=== PATIENT | male | born 1960 | race Caucasian/White ===

== ENCOUNTER 2018-12-04 17:33 | Inpatient (IN) | payer MEDICAID, OTHER ==
[~2018-12-04] VITALS: Ht 177.8 cm; Wt 127.9 kg
[2018-12-04] MEDS ORDERED: ACETAMINOPHEN 500 MG TAB PO ONE (18:45)
[2018-12-04 20:31] LABS: Lactic Acid w/Reflex 2.9 mmol/L (0.4-2.0)
[2018-12-04 21:11] LABS: Urine Bacteria NONE SEEN /hpf (None Seen); Urine Blood 3+ /uL (Negative); Urine Mucus FEW (None Seen); Urine Specific Gravity 1.028 (1.001-1.035); Urine WBC 73 /hpf (0 - 3); Urine WBC Clumps PRESENT /hpf (None Seen)
[2018-12-04 21:21] LABS: Basophils # (auto) 0 uL; Basophils % (auto) 0.2 % (0.0-2.0); Eosinophils # (auto) 0 uL; Eosinophils % (auto) 0.1 % (0.0-7.0); Hematocrit 46.8 % (41.0-53.0); Hemoglobin 15.9 g/dL (13.5-17.5); Lymphocytes # (auto) 0.9 uL; Mean Corpuscular Volume 100.1 fL (80.0-100.0); Monocytes # (auto) 2.3 uL; Monocytes % (auto) 10.1 % (0.0-12.0); Neutrophils # (auto) 19.7 uL; Neutrophils % (auto) 85.6 % (37.0-80.0); Nucleated Red Blood Cells % 0.1 %; Platelet Count (auto) 146 10^3/uL (140-450); Red Blood Cells 4.68 10^6/uL (4.5-5.90); Red Cell Distribution Width 13.5 % (11.8-14.3); White Blood Cell 23.1 10^3/uL (4.4-10.8)
[2018-12-04] MEDS ORDERED: HYDROmorphone HCL 2 MG/ML VL IV ONE (21:30)
[2018-12-04] MEDS ORDERED: ONDANSETRON HCL 4 MG/2 ML VIAL IV ONE (21:30)
[2018-12-04 21:47] LABS: Albumin 3.3 g/dL (3.4-5.0); Calcium 9.1 mg/dL (8.5-10.1); Potassium 3.5 mmol/L (3.5-5.1)
[2018-12-04 21:50] LABS: Bilirubin, Total 1.3 mg/dL (0.2-1.0); Total Protein 7.8 g/dL (6.4-8.2)
[2018-12-04] MEDS ORDERED: LEVOFLOXACIN 500MG 100 ML IV ONE (22:30)
[2018-12-04] MEDS ORDERED: ONDANSETRON HCL 4 MG/2 ML VIAL IV PRN (22:30)
[2018-12-04] MEDS ORDERED: SODIUM CHLORIDE 0.9% 1,000 ML IV ONE (22:30)
[2018-12-04] MEDS ORDERED: NITROGLYCERIN 0.4 MG SL TAB SL PRN (22:30)
[2018-12-04] MEDS ORDERED: MORPHINE SULF INJ 2 MG/ML SYRINGE 1ML IV PRN (22:30)
[2018-12-04] MEDS ORDERED: TEMAZEPAM 15 MG CAP PO PRN (22:30)
[2018-12-04] MEDS ORDERED: LACTULOSE 20Gm/30ML SOLN PO ONE (23:15)
--- NOTE | 2018-12-04 23:58 | NUR ---
RECEIVED PATIENT FROM ED VIA STRETCHER, AWAKE, ALERT, ORIENTED X4. NO S/S OF DISTRESS, DENIES ANY PAIN. WITH IV ON THE LEFT AC GAUGE 20 WITH ONGOING 1 LITER OF NS BOLUS. WITH NORIEGA CATH F16 CONNECTED TO URINE BAG DRAINING TO DARK KOBY URINE. SKIN IS INTACT. ORIENTED ON PLAN OF CARE. BED IS LOCKED AND IN LOWEST LEVEL, SIDE RAILS UP X2, CALL LIGHT WITHIN REACH. WILL CONTINUE TO MONITOR
[2018-12-05] VITALS (8 sets, daily range): BP systolic 103–126; BP diastolic 57–90
[2018-12-05] MEDS: SODIUM CHLORIDE 0.9% 1,000 ML IV SCH ×2 (02:02→11:50)
[2018-12-05 02:07] LABS: Urine Bacteria FEW /hpf (None Seen); Urine Blood Negative /uL (Negative); Urine Hyaline Cast FEW /lpf (0 - 2); Urine Mucus FEW (None Seen); Urine Specific Gravity 1.023 (1.001-1.035); Urine WBC <1 /hpf (0 - 3)
[2018-12-05 07:00] LABS: Basophils # (auto) 0 uL; Eosinophils # (auto) 0.1 uL; Hemoglobin 15.3 g/dL (13.5-17.5); Neutrophils # (auto) 14.3 uL; Nucleated Red Blood Cells % 0.1 %
[2018-12-05 07:03] LABS: Basophils % (auto) 0.2 % (0.0-2.0); Eosinophils % (auto) 0.7 % (0.0-7.0); Hematocrit 45.1 % (41.0-53.0); Lymphocytes # (auto) 0.5 uL; Lymphocytes % (auto) 2.9 % (10.0-50.0); Mean Corpuscular Hemoglobin 34.4 pg (28.0-32.0); Mean Corpuscular Hgb Conc. 33.8 g/dL (32.0-36.0); Mean Corpuscular Volume 101.7 fL (80.0-100.0); Monocytes # (auto) 1.4 uL; Monocytes % (auto) 8.8 % (0.0-12.0); Neutrophils % (auto) 87.4 % (37.0-80.0); Platelet Count (auto) 129 10^3/uL (140-450); Red Blood Cells 4.44 10^6/uL (4.5-5.90); Red Cell Distribution Width 13.6 % (11.8-14.3); White Blood Cell 16.4 10^3/uL (4.4-10.8)
--- NOTE | 2018-12-05 07:41 | NUR ---
CARE ENDORSED TO AM SHIFT RN
--- NOTE | 2018-12-05 08:00 | NUR ---
RECEIVED PATIENT ALERT AND ORIENTED X4, NOT IN DISTRESS, CLEAR SOUNDS IN BILATERAL LUNG LOBES, RR=18 SAT=97%, DEEP BREATHING AND COUGHING ENCOURAGED, DEMONSTRATED AND TOLERATED WELL, DENIED SOB AND CHEST PAIN, HEART R=78, ABDOMEN SOFT WITH ACTIVE BS, LAST BM=12/03/18 REPORTED, TOLERATED 100% OF BREAKFAST TRAY REPORTED, NORIEGA CATH IN PLACE AND PATENT, DRAINING CLEAR YELLOW URINE WITH BLOOD CLOTS, SKIN INTACT WARM TO TOUCH, RADIAL AND PEDAL PULSES PALPABLE, CAP REFILL <3 SECONDS, RESTING ON BED, HEAD OF BED ELEVATED, BED ON LOW POSITION, RAILS UP X2, CALL LIGHT ON REACH, WILL CONTINUE MONITORING.
[2018-12-05] MEDS ORDERED: DOCUSATE SOD 100 MG CAP PO SCH (10:00)
[2018-12-05] MEDS: FAMOTIDINE 20 MG TAB PO SCH ×2 (10:46→21:08)
[2018-12-05] MEDS: ACETAMINOPHEN 325 MG TAB PO PRN ×2 (12:32→21:07)
--- NOTE | 2018-12-05 12:48 | NUR ---
DR. GARSIA WAS WAS CALLED AND LEFT A MASSAGE FOR POSITIVE BLOOD CULTURE RESULT REPORTED BY THE LAB, WAITING FOR CALL BACK.
[2018-12-05] MEDS: HYDROcodone-ACET 5/325MG TAB PO PRN (13:30)
--- NOTE | 2018-12-05 14:30 | NUR ---
DR. GARSIA WAS CALLED FOR FOLLOW UP, AND WAITING FOR CALL BACK, C/O PAIN L=01/01 NORCO PO PRN WAS GIVEN ORDERED, INFLATE NORIEGA CATH AND MONITOR PLACEMENT VERIFICATION, TOLERATED WELL, RESTING ON BED PAIN L=08/01 AT THIS MOMENT, WILL CONTINUE MONITORING.
[2018-12-05] MEDS ORDERED: LACTULOSE 20Gm/30ML SOLN PO ONE (15:15)
--- NOTE | 2018-12-05 18:00 | NUR ---
D/C NORIEGA CATH ORDERED, OUT OF BED TO BR AND BACK TO BED, TOLERATED WELL, NO BM NOTED TODAY, RESTING ON BED, NOT IN DISTRESS, WILL CONTINUE MONITORING.
--- NOTE | 2018-12-05 19:18 | NUR ---
OPENING NOTE Received report from day shift RN. Patient is A&O X's 4 with no s/s of distress noted. He reports no pain at this time. Patient has no IV. Educated patient I will insert one and on POC. Patient verbalized understanding. Bed is in lowest/locked position with side rails up X's 2 and call light is within reach of patient. Educated patient to use call light when in need of assistance and when needing to ambulate. Bed alarm is on for safety. Urinal is at bedside. Will continue to monitor for changes and round hourly/PRN.
--- NOTE | 2018-12-05 19:19 | NUR ---
REPORT WAS GIVEN TO THE ADMINISTRATION ASSISTANT RN.
--- NOTE | 2018-12-05 20:30 | NUR ---
IV Patient refused to have IV inserted at this time. He reports that it hurt when I first attempted to insert 22G IV to left hand and that is why he pulled his arm away right when the IV needle touched him. No trauma to site noted. Gauze applied to site. Contacted resource RN to try to attempt IV at later time. Will continue to monitor patient
--- NOTE | 2018-12-05 21:07 | NUR ---
TEMPERATURE Temp is at 103. Cooling measures initiated: Ice packs are under patient's back of neck and under arm. Blankets are removed from patient. Administered Tylenol as ordered. Patient reports feeling okay at this time. Will reassess temp
[2018-12-05] MEDS: SENNA 8.6 MG TAB PO SCH (21:09)
--- NOTE | 2018-12-05 22:29 | NUR ---
IV INSERTION IV access obtained, via clean sterile technique by inserting 20 gauge catheter at RIGHT AC after 1 attempt. IV secured properly. No trauma to site. Patient tolerated well.
[2018-12-05] MEDS: LEVOFLOXACIN 500MG 100 ML IV SCH (22:54)
--- NOTE | 2018-12-05 22:54 | NUR ---
TEMP REASSESSMENT 101.0. Patient still reports feeling "okay." Cooling measures still being continued. Patient has no blankets on. Ice pack is under patient's arm. He took one off because he said he got way too cold with it. Will continue to monitor.
[2018-12-06] MEDS: SODIUM CHLORIDE 0.9% 1,000 ML IV SCH ×2 (01:10→14:30)
[2018-12-06 05:52] VITALS: BP 136/68
--- NOTE | 2018-12-06 07:45 | NUR ---
RECEIVED PATIENT ALERT AND ORIENTED X4, NOT IN DISTRESS, CLEAR SOUNDS IN BILATERAL LUNG LOBES, RR=18 SAT=96%, DEEP BREATHING AND COUGHING ENCOURAGED, DEMONSTRATED AND TOLERATED WELL, DENIED SOB AND CHEST PAIN, HEART R=78, ABDOMEN SOFT AND ROUND WITH HYPOACTIVE ACTIVE BS, NO BM THIS MORNING REPORTED, VOIDING ON URINAL CLOUDY YELLOW URINE NOTED, SKIN INTACT WARM TO TOUCH, RADIAL AND PEDAL PULSES PALPABLE, CAP REFILL <3 SECONDS, ENCOURAGED TO AMBULATE AND REFUSED, RESTING ON BED, HEAD OF BED ELEVATED, BED ON LOW POSITION, RAILS UP X2, CALL LIGHT ON REACH, WILL CONTINUE MONITORING.
[2018-12-06 08:11] LABS: Basophils # (auto) 0 uL; Basophils % (auto) 0.3 % (0.0-2.0); Eosinophils # (auto) 0 uL; Lymphocytes # (auto) 0.3 uL
[2018-12-06 08:14] LABS: Hematocrit 43.7 % (41.0-53.0); Mean Corpuscular Hemoglobin 34.3 pg (28.0-32.0); Mean Corpuscular Hgb Conc. 34.4 g/dL (32.0-36.0); Mean Corpuscular Volume 99.6 fL (80.0-100.0); Monocytes # (auto) 0.8 uL; Monocytes % (auto) 10.3 % (0.0-12.0); Neutrophils % (auto) 85.4 % (37.0-80.0); Platelet Count (auto) 102 10^3/uL (140-450); Red Blood Cells 4.38 10^6/uL (4.5-5.90); Red Cell Distribution Width 13.8 % (11.8-14.3); White Blood Cell 8.2 10^3/uL (4.4-10.8)
[2018-12-06 08:24] LABS: BUN/Creatinine Ratio 19.8; Calcium 8.2 mg/dL (8.5-10.1); Potassium 3.4 mmol/L (3.5-5.1)
--- NOTE | 2018-12-06 08:54 | NUR ---
RESTING ON BED, NOT IN DISTRESS, TOLERATED 100% OF DIET TRAY, WILL CONTINUE MONITORING.
[2018-12-06 09:00] VITALS: BP 116/56
[2018-12-06] MEDS: FAMOTIDINE 20 MG TAB PO SCH ×2 (10:56→22:25)
[2018-12-06 13:00] VITALS: BP 133/82
--- NOTE | 2018-12-06 15:00 | NUR ---
POTASSIUM L=3.4, WAS NOTIFIED AND AWARE.
[2018-12-06] MEDS: HYDROcodone-ACET 5/325MG TAB PO PRN (15:09)
[2018-12-06 16:20] VITALS: BP 133/82
[2018-12-06] MEDS ORDERED: FLEET MINERAL OIL ENEMA 133 ML PR ONE (16:30)
[2018-12-06] MEDS ORDERED: BISACODYL 10 MG RECT SUPP PR ONE (16:30)
--- NOTE | 2018-12-06 16:30 | NUR ---
OUT OF THE BED WITH PT, AMBULATED AROUND THE UNIT, TOLERATED WELL, SMALL HARD BRON BM NOTED REPORTED, COMPLAINING OF CONSTIPATION, DR. AMAYA NOTIFIED, WILL CONTINUE MONITORING.
[2018-12-06 17:00] VITALS: BP 124/83
--- NOTE | 2018-12-06 18:30 | NUR ---
DULCOLAX SUPPOSITORY X1 WAS GIVEN ORDERED, LARGE BM X2 WAS NOTED REPORTED, C/O CONSTIPATION, PENDING ENEMA X1, WILL CONTINUE MONITORING.
--- NOTE | 2018-12-06 19:18 | NUR ---
REPORT WAS GIVEN TO THE HULL SORTER RN.
--- NOTE | 2018-12-06 19:22 | NUR ---
OPENING NOTE Received report from day shift RN. Patient is laying in bed with no s/s of distress noted. He is currently talking on the phone. Bed is in lowest/locked position with side rails up X's 2 and call light is within reach of patient. Will continue to monitor for changes and round hourly/PRN.
[2018-12-06 21:30] VITALS: BP 119/67
[2018-12-06] MEDS: SENNA 8.6 MG TAB PO SCH (22:25)
[2018-12-06] MEDS: LEVOFLOXACIN 500MG 100 ML IV SCH (22:38)
--- NOTE | 2018-12-06 22:38 | NUR ---
PATIENT REFUSED MED Patient refused Enema at this time. He states that he had a decent size BM after suppository was given. He was willing to take the laxative after education on the medication. Encouraged patient to ambulate.
[2018-12-06] MEDS: ACETAMINOPHEN 325 MG TAB PO PRN (23:04)
[2018-12-07] MEDS: SODIUM CHLORIDE 0.9% 1,000 ML IV SCH ×2 (03:50→17:04)
--- NOTE | 2018-12-07 05:00 | NUR ---
LINEN CHANGE Patient had an accident and urinated in bed. Complete linen change done at this time. Patient ambulated to bathroom to have bowel movement.
[2018-12-07 05:59] VITALS: BP 115/72
--- NOTE | 2018-12-07 07:12 | NUR ---
CLOSING NOTE REPORT WAS GIVEN TO DAY SHIFT RN
--- NOTE | 2018-12-07 07:50 | NUR ---
RECEIVED PATIENT ALERT AND ORIENTED X4, NOT IN DISTRESS, CLEAR SOUNDS IN BILATERAL LUNG LOBES, RR=18 SAT=97%, DEEP BREATHING AND COUGHING ENCOURAGED, DEMONSTRATED AND TOLERATED WELL, DENIED SOB AND CHEST PAIN, HEART R=82, ABDOMEN SOFT AND ROUND WITH ACTIVE BS, LARGE CONSISTENT BROWN BM NOTED THIS MORNING REPORTED, VOIDING ON URINAL CLEAR YELLOW URINE, SKIN INTACT WARM TO TOUCH, RADIAL AND PEDAL PULSES PALPABLE, CAP REFILL <3 SECONDS, ENCOURAGED TO AMBULATE, AMBULATED AROUND THE UNIT X3, TOLERATED WELL, RESTING ON BED, HEAD OF BED ELEVATED, BED ON LOW POSITION, RAILS UP X2, CALL LIGHT ON REACH, WILL CONTINUE MONITORING.
[2018-12-07 08:00] VITALS: BP 124/76
[2018-12-07] MEDS: HYDROcodone-ACET 5/325MG TAB PO PRN (10:33)
[2018-12-07] MEDS: FAMOTIDINE 20 MG TAB PO SCH (10:33)
[2018-12-07 12:00] VITALS: BP 113/64
--- NOTE | 2018-12-07 14:31 | NUR ---
DR. AMAYA WAS CALLED FOR POTASSIUM L=3.4 AND FOLLOW UP UPDATES, LEFT A MESSAGE AND WAITING FOR CALL BACK.
--- NOTE | 2018-12-07 15:17 | NUR ---
assessment Per consult dc planning. Patient has no post discharge needs at this time. Addendum: 12/11/18 at 1517 by Mitali Becerra Amended: Links added.
[2018-12-07 17:00] VITALS: BP 116/71
[2018-12-07 18:33] VITALS: BP 126/74
--- NOTE | 2018-12-07 20:06 | NUR ---
D/C INSTRUCTIONS AND PRESCRIPTION EDUCATION PROVIDED, VERBALIZED UNDERSTANDING, URGENT CARE INFORMATION FOR FOLLOW UP PROVIDED, D/C IV FROM LT.AC TOLERATED WELL, VS T=97.2 RR=18 SAT=97% P=76 WW=745/68, NOT IN DISTRESS, DENIED PAIN, WC PROVIDED, D/C HOME AMBULATING ACCOMPANIED BY SON, TOOK ALL BELONGINGS AND LEFT NOTHING BEHIND.
== END 2018-12-07 19:30 | disposition home or self-care (01) | DRG 463 ==
LOC: ER 17:43 → OVERFLOW 17:44 → WEST WING 23:25
PROVIDERS: ADMIT Nurse Practitioner; ATTEND Internal Medicine
DX: N10 Acute pyelonephritis (principal); R65.10 Systemic inflammatory response syndrome (SIRS) of non-infectious origin without acute organ dysfunction; R78.81 Bacteremia; E66.01 Morbid (severe) obesity due to excess calories; Z68.41 Body mass index [BMI] 40.0-44.9, adult; N40.0 Benign prostatic hyperplasia without lower urinary tract symptoms; K56.41 Fecal impaction; M54.9 Dorsalgia, unspecified; B96.20 Unspecified Escherichia coli [E. coli] as the cause of diseases classified elsewhere; Z87.442 Personal history of urinary calculi
CPT/HCPCS: 36415; 51702; 74176; 80048; 80053; 81001; 83605; 84439; 84443; 85025; 87040; 87077; 87086; 87088; 87186; 93005; 96361; 96374; 96375; G0378; J1956; J2405

== ENCOUNTER 2024-11-05 11:12 | Inpatient (IN) | payer MEDICAID ==
[~2024-11-05] VITALS: Ht 177.8 cm; Wt 128.6 kg
--- NOTE | 2024-11-05 11:29 | ED.PDOC ---
HPI Comments 63 y/o M, presents to the ED for CC of chest pain. Patient states, he has been experiencing substernal non-radiating chest pain with associated palpitations and shortness of breath x1week. Patient reports, pain to be constant and worsening in the evenings. Patient denies dizziness, extremity swelling, headache, nausea, or vomiting. No other symptoms or modifying factors present at this time. Time Seen by MD: 11:20 Reviewed Notes: Nurses Notes, Medications, Allergies Allergies: Coded Allergies: NO KNOWN ALLERGIES (Unverified , 12/04/18) Home Meds No Active Prescriptions or Reported Meds Information Source: Patient Mode of Arrival: Ambulatory Severity: Moderate Timing: Weeks Duration: Since onset Prehospital treatment: None Location: Substernal Radiation: No Radiation Onset: At Rest Cardiac Risk Factors: None PE Risk Factors: None History of: None Modifying Factors: Nothing Associated Signs and Symptoms: SOB, Palpitations Past Medical History PAST MEDICAL HISTORY: Kidney Stones Surgical History: Denies all surgeries Family History Family History: Unknown Social History Smoker: Non-Smoker Alcohol: Occasionally Drugs: Denies Drug Use Lives In: Home Constitutional: denies: chills, diaphoresis, fatigue, fever, malaise, sweats, weakness, others EENTM: denies: blurred vision, double vision, ear bleeding, ear discharge, ear drainage, ear pain, ear ringing, eye pain, eye redness, hearing loss, mouth pain, mouth swelling, nasal discharge, nose bleeding, nose congestion, nose pain, photophobia, tearing, throat pain, throat swelling, voice changes, others Respiratory: reports: shortness of breath; denies: cough, hemoptysis, orthopnea, SOB at rest, SOB with excertion, stridor, wheezing, others Cardiovascular: reports: chest pain, palpitations; denies: dizzy spells, diaphoresis, Dyspnea on exertion, edema, irregular heart beat, left arm pain, lightheadedness, PND, syncope, others Gastrointestinal: denies: abdomen distended, abdominal pain, blood streaked bowels, constipated, diarrhea, dysphagia, difficulty swallowing, hematemesis, melena, nausea, poor appetite, poor fluid intake, rectal bleeding, rectal pain, vomiting, others Genitourinary: denies: burning, dysuria, flank pain, frequency, hematuria, incontinence, penile discharge, penile sore, pain, testicle pain, testicle swelling, urgency, others Neurological: denies: dizziness, fainting, headache, left sided numbness, left sided weakness, numbness, paresthesia, pre-existing deficit, right sided numbness, right sided weakness, seizure, speech problems, tingling, tremors, weakness, others Musculoskeletal: denies: back pain, gout, joint pain, joint swelling, muscle pain, muscle stiffness, neck pain, others Integumetry: denies: bruises, change in color, change in hair/nails, dryness, laceration, lesions, lumps, rash, wounds, others Allergic/Immunocompromised: denies: Difficulty Healing, Frequent Infections, Hives, Itching, others Hematologic/Lymphatic: denies: anemia, blood clots, easy bleeding, easy bruising, swollen glands, others Endocrine: denies: excessive hunger, excessive sweating, excessive thirst, excessive urination, flushing, intolerance to cold, intolerance to heat, unexplained weight gain, unexplained weight loss, others Psychiatric: denies: anxiety, bipolar disorder, depression, hopeless, panic disorder, schizophrenia, sleepless, suicidal, others All Other Systems: Reviewed and Negative Physical Exam General Appearance: No Apparent Distress, Normal HEENT: Normal ENT Inspection, Pharynx Normal Neck: Full Range of Motion, Non-Tender, Normal, Normal Inspection Respiratory: Chest Non-Tender, Lungs Clear, No Accessory Muscle Use, No Respiratory Distress, Normal Breath Sounds Cardiovascular: No Edema, No Murmur, No Gallop, Normal Peripheral Pulses, Tac hycardia Breast Exam: Deferred Gastrointestinal: No Organomegaly, Non Tender, No Pulsatile Mass, Normal Bowel Sounds, Soft Genitalia: Deferred Pelvic: Deferred Rectal: Deferred Extremities: No calf tenderness, Normal capillary refill, Normal inspection, Normal range of motion, Non-tender, No pedal edema Musculoskeletal : Apperance: Normal Neurologic: Alert, career resource specialist II-XII nml as Tested, No Motor Deficits, Normal Affect, Normal Mood, No Sensory Deficits Cerebellar Function: Normal Reflexes: Normal Skin: Dry, Normal Color, Warm Lymphatic: No Adenopathy Was a procedure done? Was a procedure done?: No CP Differential Dx Differential Diagnosis: Pulmonary Embolus, Sinus Tachycardia Differential Diagnosis: Chest Wall Pain, Costochondritis X-Ray, Labs, Meds, VS Vital Signs Date Time Temp Pulse Resp B/P (MAP) Pulse Ox O2 Delivery O2 Flow Rate FiO2 11/05/24 14:15 127 11/05/24 13:48 100 11/05/24 12:11 116 11/05/24 11:18 149 Lab Test 11/05/24 12:36 11/05/24 11:52 11/05/24 11:31 Range/Units Troponin I High Sensitivity 15 14 </=54 ng/L White Blood Count 6.5 4.4-10.8 10^3/uL Red Blood Count 4.75 4.5-5.90 10^6/uL Hemoglobin 16.5 13.5-17.5 g/dL Hematocrit 48.3 41.0-53.0 % Mean Corpuscular Volume 101.6 H 80.0-100.0 fL Mean Corpuscular Hemoglobin 34.8 H 28.0-32.0 pg Mean Corpuscular Hemoglobin Concent 34.3 32.0-36.0 g/dL Red Cell Distribution Width 13.5 11.8-14.3 % Platelet Count 206 140-450 10^3/uL Mean Platelet Volume 8.3 6.9-10.8 fL Neutrophils (%) (Auto) 51.9 37.0-80.0 % Lymphocytes (%) (Auto) 31.1 10.0-50.0 % Monocytes (%) (Auto) 13.8 H 0.0-12.0 % Eosinophils (%) (Auto) 2.1 0.0-7.0 % Basophils (%) (Auto) 1.1 0.0-2.0 % Neutrophils # (Auto) 3.4 1.6-8.6 10 ^3/uL Lymphocytes # (Auto) 2.0 0.4-5.4 10 ^3/uL Monocytes # (Auto) 0.9 0-1.3 10 ^3/uL Eosinophils # (Auto) 0.1 0-0.8 10 ^3/uL Basophils # (Auto) 0.1 0-0.2 10 ^3/uL Nucleated Red Blood Cells 0.1 % D-Dimer, Quantitative 0.48 0.0-0.49 mg/L FEU Sodium Level 140 136-145 mmol/L Potassium Level 4.1 3.5-5.1 mmol/L Chloride Level 110 H 98-107 mmol/L Carbon Dioxide Level 22 20-31 mmol/L Anion Gap 8 5-15 Blood Urea Nitrogen 14 9-23 mg/dL Creatinine 0.83 0.700-1.30 mg/dL Glomerular Filtration Rate Calc 98 >90 mL/min BUN/Creatinine Ratio 16.9 10.0-20.0 Serum Glucose 211 H 74-106 mg/dL Calcium Level 9.0 8.7-10.4 mg/dL B-Type Natriuretic Peptide 154.77 0-100 pg/mL Urine Color Pending Urine Clarity Pending Urine pH Pending Urine Specific [place] Pending Urine Protein Pending Urine Ketones Pending Urine Blood Pending Urine Nitrite Pending Urine Bilirubin Pending Urine Urobilinogen Pending Urine Leukocyte Esterase Pending Urine RBC Pending Urine Microscopic WBC Pending Urine Squamous Epithelial Cells Pending Urine Bacteria Pending Urine Glucose Pending Current Medications Medications (Trade) Dose Ordered Sig/Jay Route Start Time Stop Time Status Last Admin Sodium Chloride 1,000 ml @ 1,000 mls/hr Q1H ONCE IV 11/05/24 11:30 11/05/24 12:29 DC 11/05/24 11:44 [place] [address] Ph: [phone] DIAGNOSTIC IMAGING Diagnostic Imaging Report : [id number] Signed PATIENT: EVA ROBERTOT: [id number] UNIT: [id number] : 1960 LOC: ER ROOM / BED: / AGE / SEX: 63 / M ADM STATUS: REG ER SERVICE 1124 ORDERING PHYSICIAN: MAYA HIGHTOWER MD PROCEDURE(s): CXRP - CHEST PORTABLE REASON: chest pain ORDER NUMBER(s): [id number], ACCESSION NUMBER(s): [id number] CHEST RADIOGRAPH Indication: chest pain Technique: Single frontal view of the chest was obtained Comparison: None FINDINGS: Lines and Tubes: None Lungs: No focal consolidation. Mild interstitial prominence. Pleura: No effusion. No pneumothorax. Cardiomediastinal contours: Unremarkable Bones: No acute osseous abnormality. IMPRESSION: Mild Pulmonary vascular congestion. ATED BY: LOLLY GASTON DO DICTATED DATE/TIME: 11/05/24 1257 SIGNED BY: LOLLY GASTON DO SIGNED DATE/TIME: 11/05/24 1257 CC: [place] [address] Ph: [phone] DIAGNOSTIC IMAGING Diagnostic Imaging Report : [id number] Signed PATIENT: EVA ROBERTOT: [id number] UNIT: [id number] : 1960 LOC: ER ROOM / BED: / AGE / SEX: 63 / M ADM STATUS: REG ER SERVICE 1302 ORDERING PHYSICIAN: MAYA HIGHTOWER MD PROCEDURE(s): CTACH - CT ANGIO CHEST CONTRAST REASON: new onset afib, cp, sob ORDER NUMBER(s): [id number], ACCESSION NUMBER(s): [id number] CT CT ANGIO CHEST CONTRAST INDICATION: new onset afib, cp, sob EXAM DATE: 11/05/2024 01:09 PM COMPARISON: None RADIATION DOSE: CTDIvol: 26 mGy, DLP: 1002 mGy*cm PROCEDURE: Helical CT angiographic images were obtained of the chest with intravenous contrast. Sagittal and coronal reconstructions as well as MIPS are provided. Maximum intensity projections performed (MIPs) were performed for CTA. ADDITIONAL IMAGES / REFORMATS: None All CT scans at this medical facility are performed using dose modulation techniques as appropriate to a performed exam including the following: Automated exposure control was utilized; adjustment of the MA and/or KV according to patient size; and use of iterative reconstruction technique. FINDINGS: Bones: Scattered degenerative changes are noted in the visualized osseous structures. Visualized Abdomen: Cirrhotic liver. Chest Wall: Normal. Soft tissues: Normal. Mediastinum: Normal. Heart: Normal. Vessels: No filling defects in the visualized pulmonary arteries including the segmental and subsegmental pulmonary arteries. Lymph Nodes: Normal. Pleura: Normal. Airways: Normal. Lung: Normal. Other: None IMPRESSION: No pulmonary embolism in the visualized pulmonary arteries including the segmental and subsegmental pulmonary arteries. ATED BY: JOSEPH YEPEZ MD DICTATED DATE/TIME: 11/05/241345 SIGNED BY: JOSEPH YEPEZ MD SIGNED DATE/TIME: 11/05/241345 CC: Time of 1ST Reevaluation: 11:50 Reevaluation 1ST: Unchanged Patient Education/Counseling: Diagnosis, Treatment Family Education/Counseling: No Family Present SEPSIS Sepsis Screen Physician Orders Chest Portable (11/05/24 11:24) Troponin-I Hs (11/05/24 14:24) Electrocardigram (11/05/24 12:24) Electrocardigram (11/05/24 14:24) Ct Angio Chest Contrast (11/05/24 13:02) Urinalysis (11/05/24 11:31) Amiodarone Bolus Kit (Cordarone) (11/05/24 14:45) Amiodarone 360mg/200ml Premix (Nexterone (11/05/24 15:00) Amiodarone 360mg/200ml Premix (Nexterone (11/05/24 21:00) Vital Signs Date Time Temp Pulse Resp B/P (MAP) Pulse Ox O2 Delivery O2 Flow Rate FiO2 11/05/24 14:15 127 11/05/24 13:48 100 11/05/24 12:11 116 11/05/24 11:18 149 Laboratory Tests Test 11/05/24 11:52 White Blood Count 6.5 10^3/uL (4.4-10.8) Medications Medications Dose Ordered Sig/Jay Route Start Time Stop Time Status Last Admin Dose Admin Sodium Chloride 1,000 ml @ 1,000 mls/hr Q1H ONCE IV 11/05/24 11:30 11/05/24 12:29 DC 11/05/24 11:44 Departure 1 Departure Time of Disposition: 14:41 (Patient presented with chest pain that was concerning for possible STEMI, ACS, PE, Pneumonia, Muscle Strain, COPD, Dissection. Data: 1. I ordered and reviewed the result of at least 3 labs including a CBC, BMP, and Troponin. 2. I independently interpreted the following tests: EKG which shows AFib with RVR and Chest X-ray which shows vascular con gestion.Risk:This patient has a high risk of morbidity due to further diagnostic testing or treatment and may suffer from an acute cardiac or respiratory disorder. Workup reveals new onset AFib and patient should be admitted for further workup and possible expert consultation. ) Impression: Primary Impression: New onset a-fib Additional Impressions: Acute chest pain Shortness of breath Disposition: ADMITTED INPATIENT Admit to: Tele Condition: Guarded e-Prescriptions No Active Prescriptions or Reported Meds Critical Care Note Critical Care Time?: Yes Critical care comment: Acute chest pain, new onset AFib Authorized and Performed by: Maya Hightower MD Total critical care time: Approximately 54 minutes Due to a high probability of clinically significant, life threatening deterioration, the patient required my highest level of preparedness to intervene emergently and I personally spent this critical care time directly and personally managing the patient. This critical care time included obtaining a history; examining the patient; pulse oximetry; ordering and review of studies; arranging urgent treatment with development of a management plan; evaluation of patient's response to treatment; frequent reassessment; and, discussions with other providers. This critical care time was performed to assess and manage the high probability of imminent, life-threatening deterioration that could result in multi-organ failure. It was exclusive of separately billable procedures and treating other patients and teaching time. Please see my other sections and the rest of the note for further information on patient assessment and treatment. Stability Stability form required: No Heart Score Heart Score: Heart Score Response (Comments) Value History N/A 0 EKG N/A 0 Age N/A 0 Risk Factors N/A 0 Troponin N/A 0 Total 0 I personally scribed for MAYA HIGHTOWER MD ([email or web address]) on 11/05/24 at 11:29. Electronically submitted by Regine Franz ([email or web address]). I personally scribed for MAYA HIGHTOWER MD ([email or web address]) on 11/05/24 at 13:07. Electronically submitted by Regine Franz ([id number]). I personally scribed for MAYA HIGHTOWER MD ([email or web address]) on 11/05/24 at 14:40. Electronically submitted by Regine Franz ([id number]). MAYA HIGHTOWER MD Nov 05, 2024 11:29
[2024-11-05] MEDS: SODIUM CHLORIDE 0.9% 1,000 ML IV ONE (11:44)
[2024-11-05 12:00] LABS: Hemoglobin 16.5 g/dL (13.5-17.5); Nucleated Red Blood Cells % 0.1 %
[2024-11-05 12:02] LABS: Hematocrit 48.3 % (41.0-53.0); Mean Corpuscular Hemoglobin 34.8 pg (28.0-32.0); Mean Corpuscular Volume 101.6 fL (80.0-100.0)
[2024-11-05 12:09] LABS: Potassium 4.1 mmol/L (3.5-5.1); Sodium 140 mmol/L (136-145)
[2024-11-05 12:10] LABS: Anion Gap 8 (5-15); Calcium 9.0 mg/dL (8.7-10.4); Carbon Dioxide 22 mmol/L (20-31)
[2024-11-05 12:12] LABS: Chloride 110 mmol/L (98-107)
--- NOTE | 2024-11-05 12:12 | ECG ---
[facility] Test Date: 2024-11-05 Test Time: 12:11:38 Pat Name: YNES ROBERTO Department: ER Room: Gender: M Safety Engineer: DOMINIC : 1960 Requested By: MAYA HIGHTOWER Order Number: [id number] Reading MD: Measurements Intervals [place] Rate: 116 P: 0 HI: 0 QRS: -7 QRSD: 91 T: -1 QT: 328 QTc: 456 Interpretive Statements Atrial fibrillation Abnormal R-wave progression, early transition Borderline T abnormalities, inferior leads Please click the below link to view image of tracing.
[2024-11-05 12:15] LABS: BUN/Creatinine Ratio 16.9 (10.0-20.0); Blood Urea Nitrogen 14 mg/dL (9-23); Glucose 211 mg/dL (74-106)
--- NOTE | 2024-11-05 12:59 | DVH ---
CHEST RADIOGRAPH Indication: chest pain Technique: Single frontal view of the chest was obtained Comparison: None FINDINGS: Lines and Tubes: None Lungs: No focal consolidation. Mild interstitial prominence. Pleura: No effusion. No pneumothorax. Cardiomediastinal contours: Unremarkable Bones: No acute osseous abnormality. IMPRESSION: Mild Pulmonary vascular congestion.
[2024-11-05] MEDS: IOHEXOL 350 MG/ML 100ML IJ ONE (13:15)
--- NOTE | 2024-11-05 13:48 | DVH ---
CT CT ANGIO CHEST CONTRAST INDICATION: new onset afib, cp, sob EXAM DATE: 11/05/2024 01:09 PM COMPARISON: None RADIATION DOSE: CTDIvol: 26 mGy, DLP: 1002 mGy*cm PROCEDURE: Helical CT angiographic images were obtained of the chest with intravenous contrast. Sagi ttal and coronal reconstructions as well as MIPS are provided. Maximum intensity projections performe d (MIPs) were performed for CTA. ADDITIONAL IMAGES / REFORMATS: None All CT scans at this medical facility are performed using dose modulation techniques as appropriate t o a performed exam including the following: Automated exposure control was utilized; adjustment of th e MA and/or KV according to patient size; and use of iterative reconstruction technique. FINDINGS: Bones: Scattered degenerative changes are noted in the visualized osseous structures. Visualized Abdomen: Cirrhotic liver. Chest Wall: Normal. Soft tissues: Normal. Mediastinum: Normal. Heart: Normal. Vessels: No filling defects in the visualized pulmonary arteries including the segmental and subsegme ntal pulmonary arteries. Lymph Nodes: Normal. Pleura: Normal. Airways: Normal. Lung: Normal. Other: None IMPRESSION: No pulmonary embolism in the visualized pulmonary arteries including the segmental and subsegmental p ulmonary arteries.
[2024-11-05 14:50] LABS: Urine Protein, UAD Negative (Negative)
[2024-11-05] MEDS: AMIODARONE 360mg/200mL PREMIX 200 ML IV SCH (17:06)
[2024-11-05] MEDS: AMIODARONE 360mg/200mL PREMIX 200 ML IV ONE (17:06)
[2024-11-05] MEDS: AMIODARONE BOLUS KIT 100 ML IV ONE (17:06)
--- NOTE | 2024-11-05 17:42 | ECG ---
[facility] Test Date: 2024-11-05 Test Time: 16:57:34 Pat Name: YNES ROBERTO Department: ER Room: Gender: M Cs Associate: MAKAYLA : 1960 Requested By: MAYA HIGHTOWER Order Number: [id number] Reading MD: Measurements Intervals [place] Rate: 62 P: 24 DE: 180 QRS: 4 QRSD: 97 T: 39 QT: 406 QTc: 413 Interpretive Statements Sinus rhythm Abnormal R-wave progression, early transition Please click the below link to view image of tracing.
--- NOTE | 2024-11-05 19:04 | ECG ---
[facility] Test Date: 2024-11-05 Test Time: 11:18:08 Pat Name: YNES ROBERTO Department: ER Room: Gender: M Conduit Worker: LYNETTE : 1960 Requested By: MAYA HIGHTOWER Order Number: [id number] Reading MD: Measurements Intervals [place] Rate: 149 P: 0 WI: 0 QRS: 23 QRSD: 96 T: 30 QT: 332 QTc: 523 Interpretive Statements Junctional tachycardia Low voltage, precordial leads Minimal ST elevation, inferior leads Prolonged QT interval Baseline wander in lead(s) II Please click the below link to view image of tracing.
[2024-11-05 19:30] VITALS: PULSE 71; RESP 19; O2SAT 95
[2024-11-05] MEDS ORDERED: MORPHINE SULFATE INJ 2 MG/ml SYRG IV PRN (19:30)
[2024-11-05] MEDS ORDERED: ONDANSETRON HCL 4 MG/2 ML VIAL IV PRN (19:30)
[2024-11-05] MEDS ORDERED: ACETAMINOPHEN 325 MG TAB PO PRN (19:30)
[2024-11-05] MEDS ORDERED: DEXTROSE (50%) 50ML SYRG IV PRN (19:30)
[2024-11-05] MEDS ORDERED: NITROGLYCERIN 0.4 MG SL TAB SL PRN (19:30)
[2024-11-05 22:31] VITALS: BP_SYST 156; BP_DIAS 88; BP_DIAS 89; PULSE 66; PULSE 76; RESP 18; RESP 22; TEMP 99.1; O2SAT 95
[2024-11-05] MEDS ORDERED: SEMA2INJ3 SC (23:01)
[2024-11-05] MEDS: ACCU-CHEK COMFORT CURVE STRIP VI SCH (23:24)
[2024-11-05] MEDS: InsuLIN REG 1unit/0.01ml Soln (100units/ml) SC SCH (23:27)
--- NOTE | 2024-11-05 23:56 | DVHHP2 ---
History of Present Illness Reason for Visit: Palpitations History of Present Illness 63-year-old male presents for evaluation of palpitations. Patient reports six days ago while working on his car he felt pulling a muscle on his chest. Since then he has been feeling right-sided soreness. He states that yesterday patient was feeling dizzy with shortness for breath, having cold sweats and palpitations. When he presented to the emergency department patient was noted to be in AFib with RVR in the 150s. Prior to administering amiodarone per protocol patient converted to sinus rhythm 60s to 70s. Currently he denies any symptoms. Past Medical History Kidney stones, diabetes mellitus Past Surgical History Denies Family History Noncontributory Smoke: No ALCOHOL: occassional Drugs: None Lives: with Family Review of Systems Review of Systems Review of systems are currently negative otherwise addressed in HPI. Allergies: Coded Allergies: NO KNOWN ALLERGIES (Unverified , 12/04/18) Medications Current Medications Medications Dose Ordered Sig/Jay Route Start Time Stop Time Status Last Admin Dose Admin Diagnostic Test (Pha) 1 strip ACHS 11/05/24 22:00 11/05/24 23:24 1 STRIP Insulin Human Regular ACHS SC 11/05/24 22:00 11/05/24 23:27 3 UNITS Dextrose 50 ml UD PRN IV 11/05/24 19:30 Ondansetron HCl 4 mg Q4HP PRN IV 11/05/24 19:30 Enoxaparin Sodium 40 mg DAILY SC 11/06/24 10:00 Acetaminophen 650 mg Q6HP PRN PO 11/05/24 19:30 Exam Vital Signs Vital Signs Date Time Temp Pulse Resp B/P (MAP) Pulse Ox O2 Delivery O2 Flow Rate FiO2 11/05/24 22:31 99.1 66 18 156/88 (110) 95 99.1 11/05/24 19:30 Room Air* 0 21 Exam Gen: 63-year-old male in no apparent distress. Skin: Warm, dry, normal color and texture, no rash. HEENT: Normocephalic atraumatic, mucous membranes moist and pink. Neck: Cervical and supraclavicular nodes normal without enlargement, trachea is midline, thyroid gland is normal without masses. Pulmonary: Clear to auscultation and percussion bilaterally. Cardiac: Sinus rhythm Abdomen: Soft, nontender, nondistended, bowel sounds present all 4 quadrants, no guarding, no rigidity, no organomegaly. Extremities: No cyanosis, clubbing, no edema Neuro: Cranial nerves II through XII grossly intact, normal affect and speech, no focal motor deficits. Labs/Xrays AGE / SEX: 63 / M ADM STATUS: REG ER SERVICE 1302 ORDERING PHYSICIAN: MAYA HIGHTOWER MD PROCEDURE(s): CTACH - CT ANGIO CHEST CONTRAST REASON: new onset afib, cp, sob ORDER NUMBER(s): [id number], ACCESSION NUMBER(s): [id number] CT CT ANGIO CHEST CONTRAST INDICATION: new onset afib, cp, sob EXAM DATE: 11/05/2024 01:09 PM COMPARISON: None RADIATION DOSE: CTDIvol: 26 mGy, DLP: 1002 mGy*cm PROCEDURE: Helical CT angiographic images were obtained of the chest with intravenous contrast. Sagittal and coronal reconstructions as well as MIPS are provided. Maximum intensity projections performed (MIPs) were performed for CTA. ADDITIONAL IMAGES / REFORMATS: None All CT scans at this medical facility are performed using dose modulation techniques as appropriate to a performed exam including the following: Automated exposure control was utilized; adjustment of the MA and/or KV according to patient size; and use of iterative reconstruction technique. FINDINGS: Bones: Scattered degenerative changes are noted in the visualized osseous structures. Visualized Abdomen: Cirrhotic liver. Chest Wall: Normal. Soft tissues: Normal. Mediastinum: Normal. Heart: Normal. Vessels: No filling defects in the visualized pulmonary arteries including the segmental and subsegmental pulmonary arteries. Lymph Nodes: Normal. Pleura: Normal. Airways: Normal. Lung: Normal. Other: None IMPRESSION: No pulmonary embolism in the visualized pulmonary arteries including the segmental and subsegmental pulmonary arteries. ATED BY: JOSEPH MARKS MD DICTATED DATE/TIME: 11/05/24 1346 Labs Test 11/05/24 23:16 11/05/24 14:39 11/05/24 11:52 11/05/24 11:31 Range/Units POC Glucose 172 H 70-106 mg/dl Troponin I High Sensitivity 16 </=54 ng/L White Blood Count 6.5 4.4-10.8 10^3/uL Red Blood Count 4.75 4.5-5.90 10^6/uL Hemoglobin 16.5 13.5-17.5 g/dL Hematocrit 48.3 41.0-53.0 % Mean Corpuscular Volume 101.6 H 80.0-100.0 fL Mean Corpuscular Hemoglobin 34.8 H 28.0-32.0 pg Mean Corpuscular Hemoglobin Concent 34.3 32.0-36.0 g/dL Red Cell Distribution Width 13.5 11.8-14.3 % Platelet Count 206 140-450 10^3/uL Mean Platelet Volume 8.3 6.9-10.8 fL Neutrophils (%) (Auto) 51.9 37.0-80.0 % Lymphocytes (%) (Auto) 31.1 10.0-50.0 % Monocytes (%) (Auto) 13.8 H 0.0-12.0 % Eosinophils (%) (Auto) 2.1 0.0-7.0 % Basophils (%) (Auto) 1.1 0.0-2.0 % Neutrophils # (Auto) 3.4 1.6-8.6 10 ^3/uL Lymphocytes # (Auto) 2.0 0.4-5.4 10 ^3/uL Monocytes # (Auto) 0.9 0-1.3 10 ^3/uL Eosinophils # (Auto) 0.1 0-0.8 10 ^3/uL Basophils # (Auto) 0.1 0-0.2 10 ^3/uL Nucleated Red Blood Cells 0.1 % D-Dimer, Quantitative 0.48 0.0-0.49 mg/L FEU Sodium Level 140 136-145 mmol/L Potassium Level 4.1 3.5-5.1 mmol/L Chloride Level 110 H 98-107 mmol/L Carbon Dioxide Level 22 20-31 mmol/L Anion Gap 8 5-15 Blood Urea Nitrogen 14 9-23 mg/dL Creatinine 0.83 0.700-1.30 mg/dL Glomerular Filtration Rate Calc 98 >90 mL/min BUN/Creatinine Ratio 16.9 10.0-20.0 Serum Glucose 211 H 74-106 mg/dL Calcium Level 9.0 8.7-10.4 mg/dL B-Type Natriuretic Peptide 154.77 0-100 pg/mL Thyroid Stimulating Hormone (TSH) 1.54 0.55-4.78 uIU/mL Urine Color Yellow Yellow Urine Clarity Clear Clear Urine pH 5.5 5.0-9.0 Urine Specific [place] 1.038 H 1.001-1.035 Urine Protein Negative Negative Urine Ketones Negative Negative Urine Blood Negative Negative /uL Urine Nitrite 1+ H Negative Urine Bilirubin Negative Negative Urine Urobilinogen Normal Negative mg/dL Urine Leukocyte Esterase Negative Negative /uL Urine RBC 6 0 - 3 /hpf Urine Microscopic WBC 4 H 0-3 /HPF Urine Squamous Epithelial Cells None seen <5 /hpf Urine Bacteria None seen None Seen /hpf Urine Mucus Few None Seen Urine Glucose 4+ H Normal mg/dL SEPSIS Sepsis Screen Date sepsis recognized/suspect: Nov 05, 2024 Time Sepsis recognized/suspect: 1929 Recent Procedure: No On Antibiotic Therapy: No Respiratory Rate >20: No Heart Rate >90: No Temp<36 C (96.8 F) or >38.3 C: No SBP <90 or MAP <65 mmHG: No New Acute Mental Status Change: No Is the patient on CPAP, BIPAP,: No Physician Orders Electrocardigram (11/05/24 16:52) Admit (11/05/24 19:16) Stat Ekg For Chest Pain (11/05/24 19:16) Notify Md Of Changes From Base (11/05/24 19:16) Cell Biologist For 24 Hours (11/05/24 19:16) Emergency Dysrhythmia Protocol (11/05/24 19:16) Rhythm Strips Once Every Shift (11/05/24 19:16) Oxygen By Nasal Cannula (11/05/24 19:16) * Cardiology Consult (11/05/24 19:19) Basic Metabolic Panel (11/06/24 04:00) Magnesium (11/06/24 04:00) Glucose Blood (Accu-Chek Comfort Curve T (11/05/24 22:00) Insulin R (Human) (Insulin R) (11/05/24 22:00) Dextrose 50% Syringe (11/05/24 19:30) Ondansetron Hcl (Zofran) (11/05/24 19:30) Enoxaparin Sodium (Lovenox) (11/06/24 10:00) Cardiac Diet-2gna,Lofat,Lochol (11/06/24 Breakfast) Echo 2d Mode Cardiac Dop (11/05/24 19:19) Condition: Fair (11/05/24 19:19) Acetaminophen Tablet (Tylenol Tablet) (11/05/24 19:30) Bedrest With Bathroom Privileg (11/05/24 19:19) Vital Signs Date Time Temp Pulse Resp B/P (MAP) Pulse Ox O2 Delivery O2 Flow Rate FiO2 11/05/24 22:31 99.1 66 18 156/88 (110) 95 99.1 11/05/24 22:31 99.1 66 22 156/89 (111) 95 99.1 11/05/24 22:00 67 17 137/73 (94) 93 11/05/24 20:00 68 11/05/24 20:00 98.2 71 29 144/74 (97) 95 98.2 11/05/24 19:30 71 19 95 Room Air* 0 21 11/05/24 18:41 78 11/05/24 18:00 98.2 73 20 137/73 (94) 95 98.2 11/05/24 16:57 62 11/05/24 16:19 97.5 148 20 104/92 (96) 96 97.5 11/05/24 16:00 64 20 132/78 (96) 95 Medications Medications Dose Ordered Sig/Jay Route Start Time Stop Time Status Last Admin Dose Admin Diagnostic Test (Pha) 1 strip ACHS 11/05/24 22:00 11/05/24 23:24 1 STRIP Insulin Human Regular ACHS SC 11/05/24 22:00 11/05/24 23:27 3 UNITS Assessment/Plan Assessment/Plan Assessment AFib with RVR, new onset Diabetes mellitus Morbid obesity Plan Admit the patient to telemetry to the hospitalist Cardiology consultation Echocardiogram pending Resume home medications Continue treatment per orders Plan discussed with: Patient My Orders Orders - ADRIANO MULTANI Procedure Category Date Status Time Admit ADMIT 11/05/24 Transmitted 19:16 Stat Ekg For Chest [facility] 11/05/24 In Process Pain 19:16 Notify Of Changes [facility] 11/05/24 In Process From Base 19:16 Cell Biologist For [facility] 11/05/24 In Process 24 Hours 19:16 Emergency Dysrhythmia [facility] 11/05/24 In Process Protocol 19:16 Rhythm Strips Once [facility] 11/05/24 In Process Every Shift 19:16 Oxygen By Nasal RT 11/05/24 Transmitted Cannula 19:16 * Cardiology Consult CONS 11/05/24 Transmitted 19:19 Basic Metabolic Panel LAB 11/06/24 Verified 04:00 Magnesium LAB 11/06/24 Verified 04:00 Glucose Blood PHA 11/05/24 In Process (Accu-Chek Comfort 22:00 Insulin R (Human) PHA 11/05/24 In Process (Insulin R) 22:00 Dextrose 50% Syringe PHA 11/05/24 In Process 19:30 Ondansetron Hcl PHA 11/05/24 In Process (Zofran) 19:30 Enoxaparin Sodium PHA 11/06/24 In Process (Lovenox) 10:00 Cardiac DIET 11/06/24 Transmitted Diet-2gna,Lofat,Lochol Breakfast Echo 2d Mode Cardiac US 11/05/24 Logged DOP 19:19 Condition: Fair [facility] 11/05/24 In Process 19:19 Acetaminophen Tablet PHA 11/05/24 In Process (Tylenol Tablet) 19:30 Bedrest With Bathroom [facility] 11/05/24 In Process Privileg 19:19 Date of Service: Nov 05, 2024 Billing Provider: ADRIANO MULTANI Common Visit Codes: [id number] INP/OBS CARE (HIGH) ADRIANO MULTANI Nov 05, 2024 23:56
[2024-11-06] VITALS (9 sets, daily range): BP systolic 108–137; BP diastolic 65–87; PULSE 61–74; RESP 16–18; TEMP 98.1–98.5; O2SAT 95–97
[2024-11-06 06:51] LABS: Potassium 4.0 mmol/L (3.5-5.1); Sodium 140 mmol/L (136-145)
[2024-11-06 06:52] LABS: Anion Gap 8 (5-15); Calcium 8.6 mg/dL (8.7-10.4); Carbon Dioxide 24 mmol/L (20-31); Chloride 108 mmol/L (98-107)
[2024-11-06 06:57] LABS: BUN/Creatinine Ratio 19.0 (10.0-20.0); Blood Urea Nitrogen 16 mg/dL (9-23); Glucose 151 mg/dL (74-106); Magnesium 1.9 mg/dL (1.6-2.6)
--- NOTE | 2024-11-06 09:35 | ECG ---
[facility] Test Date: 2024-11-05 Test Time: 14:15:42 Pat Name: YNES ROBERTO Department: ER Room: 0285 Gender: M Applications Support Engineer: MAKAYLA : 1960 Requested By: MAYA HIGHTOWER Order Number: [id number] Reading MD: Measurements Intervals Cisco Rate: 127 P: 258 AR: 127 QRS: -4 QRSD: 98 T: 43 QT: 328 QTc: 477 Interpretive Statements Sinus tachycardia with irregular rate Abnormal R-wave progression, early transition Borderline prolonged QT interval Artifact in lead(s) II,aVF,V1,V2,V3,V5,V6 Please click the below link to view image of tracing.
[2024-11-06] MEDS: ENOXAPARIN SOD 40 MG/0.4 ML SYRINGE SC SCH (09:39)
--- NOTE | 2024-11-06 12:48 | DVHINCON2 ---
Date Seen: Nov 06, 2024 Referring Physician JENSEN Abreu Reason for Consultation Atrial fibrillation History of Present Illness This is a 63-year-old male patient who presents to emergency room with chief complaint of shortness of breath. The patient reports that on the day of emergency room arrival, he woke up feeling short of breath and subsequently experienced palpitations. Upon emergency room arrival, a twelve lead electrocardiogram revealed a narrow complex tachycardia, likely atrial flutter. A repeat twelve lead electrocardiogram done in the emergency room confirms atrial fibrillation. While in the emergency room, ER staff administered an amiodarone bolus followed by an amiodarone drip. At the time of assessment, the patient is back in a normal sinus rhythm on cardiac monitor technician. He denies any symptoms at time of assessment. Significant past medical history includes type 2 diabetes mellitus, nicotine and tobacco use, and morbid obesity. Past Medical History Past medical history reviewed. No other significant than mentioned above. Past Surgical History Right knee replacement Family History: FH: cirrhosis G8 BROTHER FH: liver disease G8 MOTHER Family History Family history reviewed. Social History The patient reports he previously used to chew tobacco for over 30 years, pat ient currently chews nicotine daily Denies any illicit drug use Denies any alcohol use Allergies: Coded Allergies: NO KNOWN ALLERGIES (Unverified , 12/04/18) Home Meds Reported Medications Semaglutide (Ozempic) 2 Mg/3 Ml Inj, 2.5 MG SC QWEEKLY, INJ 11/05/24 Home Meds Home medications reviewed. Current Medications Current Medications Medications (Trade) Dose Ordered Sig/Jay Route PRN Reason Start Time Stop Time Status Last Admin Nitroglycerin (Ntrostat Sublingual) 0.4 mg Q5MINP PRN SL FOR CHEST PAIN 11/05/24 19:30 11/05/24 22:35 DC Morphine Sulfate 2 mg Q30M PRN IV FOR CHEST PAIN 11/05/24 19:30 11/05/24 22:35 DC Diagnostic Test (Pha) (Accu-Chek Comfort Curve T) 1 strip ACHS 11/05/24 22:00 11/06/24 11:33 Insulin Human Regular (InsuLIN R) ACHS SC 11/05/24 22:00 11/06/24 11:38 Dextrose 50 ml UD PRN IV Blood Sugar LESS THAN 60 11/05/24 19:30 Ondansetron HCl (Zofran) 4 mg Q4HP PRN IV NAUSEA / VOMITING 11/05/24 19:30 Enoxaparin Sodium (Lovenox) 40 mg DAILY SC 11/06/24 10:00 11/06/24 09:39 Acetaminophen (Tylenol Tablet) 650 mg Q6HP PRN PO PAIN SCALE 1-3 OR TEMP>100.4 11/05/24 19:30 Review of Systems Constitutional: No symptom reported Ears, Nose, & Throat: No symptom reported Eyes: No symptom reported Neurological: No symptoms reported Pulmonary/Respiratory: Shortness of breath Cardiovascular: Palpitations Gastrointestinal: No symptom reported Genitourinary: No symptom reported Musculoskeletal: No symptom reported Skin: No symptom reported Psychiatric: No symptom reported Endocrine: No symptom reported Hematologic/Lymphatic: No symptom reported Vital Signs Vital Signs Date Time Temp Pulse Resp B/P (MAP) Pulse Ox O2 Delivery O2 Flow Rate FiO2 11/06/24 09:19 98.1 69 18 108/65 (79) 95 98.1 11/06/24 07:47 Room Air* 0 21 Physical Exam General Appearance: Cooperative. Morbidly obese Pulmonary/Respiratory: Clear, bilateral breaths sounds. Cardiovascular/Chest: Regular rate and rhythm. Peripheral Pulses: 2+ Radial (R). 2+ Radial (L). 2+ Pedal (R). 2+ Pedal (L) Abdominal Exam: Normal bowel sounds. Ankle Exam: Negative ankle edema Lower extremities: Negative lower extremity edema Neuro/Mental Status: A/OX4, coherent. Thoughts/Psych: Normal thought pattern. Appropriate mood and affect. Good judgment and insight. Appearance: No acute distress. Skin Exam: Normal inspection. Normal color. Warm and dry. Labs/Diagnostic Data Labs Test 11/06/24 11:22 11/06/24 06:27 11/05/24 14:39 11/05/24 11:52 Range/Units POC Glucose 148 H 70-106 mg/dl Sodium Level 140 136-145 mmol/L Potassium Level 4.0 3.5-5.1 mmol/L Chloride Level 108 H 98-107 mmol/L Carbon Dioxide Level 24 20-31 mmol/L Anion Gap 8 5-15 Blood Urea Nitrogen 16 9-23 mg/dL Creatinine 0.84 0.700-1.30 mg/dL Glomerular Filtration Rate Calc 97 >90 mL/min BUN/Creatinine Ratio 19.0 10.0-20.0 Serum Glucose 151 H 74-106 mg/dL Hemoglobin A1c 7.4 H <5.7 % A1C Calcium Level 8.6 L 8.7-10.4 mg/dL Magnesium Level 1.9 1.6-2.6 mg/dL Vitamin B12 Level 541 211-911 pg/mL Folic Acid 11.77 >5.38 ng/mL Troponin I High Sensitivity 16 </=54 ng/L White Blood Count 6.5 4.4-10.8 10^3/uL Red Blood Count 4.75 4.5-5.90 10^6/uL Hemoglobin 16.5 13.5-17.5 g/dL Hematocrit 48.3 41.0-53.0 % Mean Corpuscular Volume 101.6 H 80.0-100.0 fL Mean Corpuscular Hemoglobin 34.8 H 28.0-32.0 pg Mean Corpuscular Hemoglobin Concent 34.3 32.0-36.0 g/dL Red Cell Distribution Width 13.5 11.8-14.3 % Platelet Count 206 140-450 10^3/uL Mean Platelet Volume 8.3 6.9-10.8 fL Neutrophils (%) (Auto) 51.9 37.0-80.0 % Lymphocytes (%) (Auto) 31.1 10.0-50.0 % Monocytes (%) (Auto) 13.8 H 0.0-12.0 % Eosinophils (%) (Auto) 2.1 0.0-7.0 % Basophils (%) (Auto) 1.1 0.0-2.0 % Neutrophils # (Auto) 3.4 1.6-8.6 10 ^3/uL Lymphocytes # (Auto) 2.0 0.4-5.4 10 ^3/uL Monocytes # (Auto) 0.9 0-1.3 10 ^3/uL Eosinophils # (Auto) 0.1 0-0.8 10 ^3/uL Basophils # (Auto) 0.1 0-0.2 10 ^3/uL Nucleated Red Blood Cells 0.1 % D-Dimer, Quantitative 0.48 0.0-0.49 mg/L FEU B-Type Natriuretic Peptide 154.77 0-100 pg/mL Thyroid Stimulating Hormone (TSH) 1.54 0.55-4.78 uIU/mL Test 7/15/25 11:31 Range/Units Urine Color Yellow Yellow Urine Clarity Clear Clear Urine pH 5.5 5.0-9.0 Urine Specific [place] 1.038 H 1.001-1.035 Urine Protein Negative Negative Urine Ketones Negative Negative Urine Blood Negative Negative /uL Urine Nitrite 1+ H Negative Urine Bilirubin Negative Negative Urine Urobilinogen Normal Negative mg/dL Urine Leukocyte Esterase Negative Negative /uL Urine RBC 6 0 - 3 /hpf Urine Microscopic WBC 4 H 0-3 /HPF Urine Squamous Epithelial Cells None seen <5 /hpf Urine Bacteria None seen None Seen /hpf Urine Mucus Few None Seen Urine Glucose 4+ H Normal mg/dL Assessment Atrial fibrillation with rapid ventricular response, new onset, now normal sinus rhythm Rule out structural heart disease Type 2 diabetes mellitus Nicotine and tobacco use Morbid obesity Plan/Recommendation We will continue with the following plan/recommendations (Dr. Pineda): * Transthoracic echocardiogram to evaluate cardiac function * [id number] VASc score: 1 point, HAS-BLED score: 0 points * Transitioned to oral antiarrhythmic agent, amiodarone. Consider flecainide if EF normal * Initiate low-dose beta-glenda * Therapeutic Lovenox while inpatient, consider NOAC upon DC * Monitor and replete electrolytes as needed * Close Cardiac surveillance The patient was chemically cardioverted with amiodarone and is now in a normal sinus rhythm. Although patient [id number] VASc score is low, NOAC therapy patient be considered upon discharge for at least 30 days given high-risk for thromboembolic event post cardioversion. Thank you for allowing us to care for this patient. Please call with any questions or concerns. Critical care time spent: 44 minutes This medical document was created using an electronic medical record system with voice recognition software and computerized dictation system. Although this document has been carefully reviewed, there might still be some phonetic and typographical errors. Occasional wrong-word or ``sound-alike substitutions may have occurred due to the inherent limitations of voice recognition software. These areas are purely typographical due to imperfections of the software programs and do not reflect any compromise in the patient's medical care. Please read the chart carefully and recognize, using context, where these substitutions have occurred. Plan discussed with: Patient NYHA Physical activity limitations: NA Date of Service: Nov 06, 2024 Billing Provider: FLOWERS,RODNEY SPACER TYPE [employer]GMENT Cardiology Common Codes: [id number] INP/OBS CARE (High) Cardiology Consultation Codes: [id number] CONSULT <45MIN RODNEY FLOWERS SPACER TYPE [employer] SEGMENT Nov 06, 2024 12:48
[2024-11-06] MEDS: AMIODARONE HCL 200 MG TAB PO ONE (14:59)
--- NOTE | 2024-11-06 16:14 | DVHPNRES ---
Progress Note Date Seen: Nov 06, 2024 Resident Creating Document: KVEIN FULLER RESIDENT Medical Necessity Reason Pt with a Central, PICC or Fol: No Subjective Review of Systems Patient is 63-year-old male with history of nicotine and tobacco use presented to the ED with chief complaint of palpitations. He states that 2 weeks ago he began to feel chest pain described as sharp, intermittent, concentrated on the right chest, intensity of 4/10, nonradiating, without aggravating nor relieving factors. While in bed the night before last he had a sudden onset of palpitations associated with shortness of breaths, dizziness, and diaphoresis. denied fever, nausea, vomiting, loss of consciousness, left arm pain, and headache. On evaluation in the ED, patient was tachycardic, with heart rate in the 150s, and in mild distress. 12 lead EKG performed in the ED showed AFib with RVR. show labs show WBCs 6.5, hemoglobin 16.5, hematocrit 48.3, platelets 206, D-dimer 0.48, and troponins negative. Chest x-ray shows mild pulmonary vascular congestion. CT angio shows no pulmonary embolism visualized in the pulmonary arteries including the segmental and subsegmental pulmonary arteries. Patient was started on amiodarone drip with subsequent returned to sinus rhythm. He was admitted for further monitoring and workup. Surgical: Bilateral knee arthroplasty Social: Refers distant history of cocaine use with cessation 38 years ago, refers occasional alcohol use, states regular nicotine use in the form of lip packs. States he goes through one tin a week. Previously used chewing tobacco for over 30 years. Patient seen at bedside. He is oriented in person, place, and time. States that he feels well, was able to sleep, is eating, and ambulating without difficulty. Denies palpitations, shortness of breath, dizziness, and diaphoresis. Upon further evaluation, patient states that chest pain began after lifting something heavy at work is concentrated only to the right pectoral area. Follow-up labs significant for BNP 154.77, HbA1c: 7.4, UA with 4+ glucose. He has been informed of his diabetic status and will be initiated SSI for glycemic control. His [id number] VASc score was 1, HAS-BLED score: 0. He was seen by cardiology who recommend transthoracic echocardiogram, transitioned of oral antiarrhymtic agent consider flecainide if EF normal, intiate has a low-dose beta glenda, therapeutic Lovenox while inpatient consider NOAC upon DC, possible anticoagulation and close cardiac surveillance. Review of Systems: Constitutional: Denies weight loss, fever and chills. HEENT: Denies changes in vision and hearing. Respiratory: Denies shortness of breath and cough Cardiovascular: Chest discomfort on palpation of right pectoral area, denies palpitations GI: Denies abdominal distention, abdominal pain, diarrhea : Denies dysuria and urinary frequency. Musculoskeletal: Denies myalgias and joint pain Skin: Denies rash and pruritus. Neurological: denies dizziness headache vision or hearing problems Objective vital signs Vital Sign Date Time Temp Pulse Resp B/P (MAP) Pulse Ox O2 Delivery O2 Flow Rate FiO2 11/06/24 12:51 98.4 66 16 133/85 (101) 96 98.4 11/06/24 07:47 Room Air* 0 21 Total Intake and Output 11/05/24 11/05/24 11/06/24 15:00 23:00 07:00 Intake Total 150 ml Balance 150 ml medications Current Medications Medications Dose Ordered Sig/Jay Route Start Time Stop Time Status Last Admin Dose Admin Diagnostic Test (Pha) 1 strip ACHS 11/05/24 22:00 11/06/24 11:33 1 STRIP Insulin Human Regular ACHS SC 11/05/24 22:00 11/06/24 11:38 2 UNITS Dextrose 50 ml UD PRN IV 11/05/24 19:30 Ondansetron HCl 4 mg Q4HP PRN IV 11/05/24 19:30 Acetaminophen 650 mg Q6HP PRN PO 11/05/24 19:30 Amiodarone HCl 200 mg Q12HR PO 11/06/24 22:00 Enoxaparin Sodium 130 mg Q12HR SC 11/06/24 22:00 Metoprolol Tartrate 12.5 mg BID PO 11/06/24 22:00 Examination General: The patient alert and oriented in person place and time. Patient following commands HEENT: Normocephalic, atraumatic, moist mucous membrane Respiratory/pulmonary: Minor pain to palpation of right pectoral region of chest, clear lungs bilaterally, vesicular murmurs present in almost all lung allan, no associated crackles or wheezes. Cardiovascular: Normal rate, normal S1 and S2 Abdomen: Obese, Normal bowel sounds, abdomen nondistended, there is no pain to palpation in any of the abdominal quadrants, no palpable masses. Extremities: there is no peripheral edema present at the lower extremities. Peripheral pulses 3+ radial right, 3+ radials soft. 3+ dorsalis pedis right. 3+ dorsalis pedis left Skin: No rashes or pruritus Neurological: Intact cranial nerves with no focal neurologic deficits laboratory and microbiology Laboratory Tests 11/06/24 06:27 11/05/24 11:52 Test 11/06/24 06:27 Range/Units Serum Glucose 151 H 74-106 mg/dL Problem List/Assessment/Plan Problem List/Assessment/Plan Assessment and Plan: Paroxysmal Atrial Fibrillation with RVR, resolved -[id number] VASc: 1, HAS-BLED: 0 -Amiodarone IV, discontinued -Amiodarone 200 mg PO, q12 hr -Metoprolol 12.5 mg PO BID -Per cardiology: Recommend transthoracic echocardiogram, transitioned of oral antiarrhymtic agent consider flecainide if EF normal, intiate has a low-dose beta glenda, therapeutic Lovenox while inpatient consider NOAC upon DC, possible anticoagulation and close cardiac surveillance. Pulmonary embolism, ruled out -CT Angio: no pulmonary embolism visualized in the pulmonary arteries including the segmental and subsegmental pulmonary arteries. Chest pain, likely musculoskeletal due muscle strain -Acetaminophen 650 mg PO q6 PRN Newly Diagnosed Type 2 diabetes, HbA1c: 7.4 -Mild SSI -Accu-cheks -Carbohydrate consistent diet Morbid obesity, 39.9 kg/m2 Tobacco Use -Patient was counseled on cessation of tobacco use for over 20 minutes. Case discussed with Dr. Segovia, Goals of care discussed with the patient for over 25 minutes. He states he understands and agrees. FULL CODE. Plan discussed with: Patient Date of Service: Nov 06, 2024 Billing Provider: GRACE SEGOVIA MD Common Visit Codes: [id number] INP/OBS CARE(HIGH) KEVIN FULLER RESIDENT Nov 06, 2024 16:14 GRACE SEGOVIA MD Nov 06, 2024 22:03
[2024-11-06] MEDS ORDERED: BACDST PO (16:34)
[2024-11-06] MEDS: AMIODARONE HCL 200 MG TAB PO SCH (21:47)
[2024-11-06] MEDS: METOPROLOL TARTRATE 25 MG TAB PO SCH (21:48)
[2024-11-06] MEDS: ENOXAPARIN SOD 150 MG/1 ML SYRINGE SC SCH (22:00)
[2024-11-07 01:00] VITALS: BP 131/80; PULSE 59; RESP 18; TEMP 98; O2SAT 97
[2024-11-07 03:20] LABS: COVID19 ANTIGEN SOFIA FIA NEGATIVE (NEGATIVE)
[2024-11-07 05:00] VITALS: BP 112/69; PULSE 60; RESP 18; TEMP 98.7; O2SAT 97
[2024-11-07 05:19] LABS: Hemoglobin 15.8 g/dL (13.5-17.5)
[2024-11-07 05:21] LABS: Hematocrit 46.3 % (41.0-53.0); Mean Corpuscular Hemoglobin 34.9 pg (28.0-32.0); Mean Corpuscular Volume 102.0 fL (80.0-100.0); Nucleated Red Blood Cells % 0.1 %
[2024-11-07 05:30] LABS: Chloride 107 mmol/L (98-107); Potassium 3.6 mmol/L (3.5-5.1); Sodium 140 mmol/L (136-145)
[2024-11-07 05:31] LABS: Anion Gap 7 (5-15); Calcium 9.5 mg/dL (8.7-10.4); Carbon Dioxide 26 mmol/L (20-31)
[2024-11-07 05:36] LABS: BUN/Creatinine Ratio 16.7 (10.0-20.0); Blood Urea Nitrogen 13 mg/dL (9-23)
[2024-11-07 05:40] LABS: Glucose 124 mg/dL (74-106)
[2024-11-07 06:25] LABS: Urine Protein, UAD Negative (Negative)
[2024-11-07 08:00] VITALS: PULSE 59; RESP 17; O2SAT 97
[2024-11-07 09:00] VITALS: BP 123/78; PULSE 57; RESP 18; TEMP 98.2; O2SAT 94
[2024-11-07] MEDS ORDERED: METO25TA5 PO (12:26)
[2024-11-07] MEDS ORDERED: AMIO200T33 PO (12:26)
[2024-11-07] MEDS ORDERED: APIX5TAB PO (12:26)
[2024-11-07 12:30] VITALS: BP 122/94; PULSE 92; RESP 18; TEMP 98.1; O2SAT 96
--- NOTE | 2024-11-07 12:40 | DVHDSRES ---
Discharge Summary Date of Admission Resident Creating Document: KEVIN FULLER RESIDENT Nov 05, 2024 at 19:16 Date of Discharge: Nov 07, 2024 Admitting Diagnosis Palpitations Labs/Diagnostic Data: Laboratory Results Test 11/07/24 06:09 11/07/24 04:10 11/07/24 02:30 11/06/24 06:27 POC Glucose 145 mg/dl (70-106) White Blood Count 6.3 10^3/uL (4.4-10.8) Red Blood Count 4.53 10^6/uL (4.5-5.90) Hemoglobin 15.8 g/dL (13.5-17.5) Hematocrit 46.3 % (41.0-53.0) Mean Corpuscular Volume 102.0 fL (80.0-100.0) Mean Corpuscular Hemoglobin 34.9 pg (28.0-32.0) Mean Corpuscular Hemoglobin Concent 34.2 g/dL (32.0-36.0) Red Cell Distribution Width 13.5 % (11.8-14.3) Platelet Count 194 10^3/uL (140-450) Mean Platelet Volume 9.0 fL (6.9-10.8) Neutrophils (%) (Auto) 40.0 % (37.0-80.0) Lymphocytes (%) (Auto) 40.0 % (10.0-50.0) Monocytes (%) (Auto) 14.2 % (0.0-12.0) Eosinophils (%) (Auto) 4.0 % (0.0-7.0) Basophils (%) (Auto) 1.8 % (0.0-2.0) Neutrophils # (Auto) 2.5 10 ^3/uL (1.6-8.6) Lymphocytes # (Auto) 2.5 10 ^3/uL (0.4-5.4) Monocytes # (Auto) 0.9 10 ^3/uL (0-1.3) Eosinophils # (Auto) 0.3 10 ^3/uL (0-0.8) Basophils # (Auto) 0.1 10 ^3/uL (0-0.2) Nucleated Red Blood Cells 0.1 % Sodium Level 140 mmol/L (136-145) Potassium Level 3.6 mmol/L (3.5-5.1) Chloride Level 107 mmol/L (98-107) Carbon Dioxide Level 26 mmol/L (20-31) Anion Gap 7 (5-15) Blood Urea Nitrogen 13 mg/dL (9-23) Creatinine 0.78 mg/dL (0.700-1.30) Glomerular Filtration Rate Calc 100 mL/min (>90) BUN/Creatinine Ratio 16.7 (10.0-20.0) Serum Glucose 124 mg/dL (74-106) Calcium Level 9.5 mg/dL (8.7-10.4) Urine Color Light-yellow (Yellow) Urine Clarity Clear (Clear) Urine pH 6.0 (5.0-9.0) Urine Specific [place] 1.015 (1.001-1.035) Urine Protein Negative (Negative) Urine Ketones Negative (Negative) Urine Blood Negative /uL (Negative) Urine Nitrite Negative (Negative) Urine Bilirubin Negative (Negative) Urine Urobilinogen 2 mg/dL (Negative) Urine Leukocyte Esterase Trace /uL (Negative) Urine RBC 2 /hpf (0 - 3) Urine Microscopic WBC 14 /HPF (0-3) Urine Squamous Epithelial Cells Few /hpf (<5) Urine Bacteria None seen /hpf (None Seen) Urine Glucose 1+ mg/dL (Normal) Influenza Type A Antigen Negative (Negative) Influenza Type B Antigen Negative (Negative) SARS-CoV-2 Antigen (Rapid) Negative (NEGATIVE) Hemoglobin A1c 7.4 % A1C (<5.7) Magnesium Level 1.9 mg/dL (1.6-2.6) Vitamin B12 Level 541 pg/mL (211-911) Folic Acid 11.77 ng/mL (>5.38) Test 11/05/24 14:39 11/05/24 11:52 11/05/24 11:31 Troponin I High Sensitivity 16 ng/L (</=54) D-Dimer, Quantitative 0.48 mg/L FEU (0.0-0.49) B-Type Natriuretic Peptide 154.77 pg/mL (0-100) Thyroid Stimulating Hormone (TSH) 1.54 uIU/mL (0.55-4.78) Urine Mucus Few (None Seen) Other Laboratory Tests 11/07/24 04:10 Brief Hx & Hospital Course: Patient is 63-year-old male with history DM type 2 and nicotine/tobacco use, who presented to the ED with chief complaint of palpitations. He states that 2 weeks ago he began to feel chest pain after lifting something heavy at work amd feeling something "pop", described as sharp, intermittent, concentrated on the right chest, intensity of 4/10, nonradiating, without aggravating nor relieving factors. While in bed the night before last, he had a sudden onset of palpitations associated with shortness of breaths, dizziness, and diaphoresis. He denied fever, nausea, vomiting, loss of consciousness, left arm pain, and headache. On evaluation in the ED, patient was tachycardic, with heart rate in the 150s, and in mild distress. 12 lead EKG performed in the ED showed AFib with RVR. Initial labs show WBCs 6.5, hemoglobin 16.5, hematocrit 48.3, platelets 206, D-dimer 0.48, and troponins negative. Chest x-ray shows mild pulmonary vascular congestion. CT angiogram shows no pulmonary embolism visualized in the pulmonary arteries including the segmental and subsegmental pulmonary arteries. Patient was started on amiodarone drip with subsequent returned to sinus rhythm. He was admitted for further monitoring and workup. Patient was started on PO amiodarone and Lovenox therapeutic dose. Follow-up labs significant for BNP 154.77 and HbA1c: 7.4, He was subsequently started on mild SSI for glycemic control. His [id number] VASc score was 1, HAS-BLED score: 0. He was seen by cardiology who recommend transthoracic echocardiogram, initiate has a low-dose beta glenda, therapeutic Lovenox while inpatient and consider NOAC after discharge, and close cardiac surveillance. On evaluation today, patient stated that he felt well, was ambulating without difficulty, and denied chest pain, palpitations, shortness of breath, dizziness, or diaphoresis. Vitals have remained stable, with heart rate trending between 59-74 bpm. Today's labs were within normal range. He is considered stable for discharge home with PO amiodarone, metoprolol, and Eliquis. He was counseled about the need for longterm anticoagulation due to his elevated risk of stroke. He was informed of the importance of adherence, when and how to take it, possible side effects, need for follow up, and the need to inform other certified medical technician assistant before any procedures. The patient states he understands and has already reached out to for an appointment with his PCP for referral to a director account management for ocean transportation intermediary monitoring. General: The patient alert and oriented in person place and time. Patient following commands HEENT: Normocephalic, atraumatic, moist mucous membrane Respiratory/pulmonary: Clear lungs bilaterally, vesicular murmurs present in almost all lung allan, no associated crackles or wheezes. Cardiovascular: Normal rate, normal S1 and S2 Abdomen: Abdomen nondistended, there is no pain to palpation in any of the abdominal quadrants, no palpable masses. Extremities: there is no peripheral edema present at the lower extremities. Peripheral pulses 3+ radial right, 3+ radials soft. 3+ dorsalis pedis right. 3+ dorsalis pedis left Skin: No rashes or pruritus Neurological: Intact cranial nerves with no focal neurologic deficits Case discussed with Dr. Kong. Goals of care discussed with the patient for over 20 minutes. He states he understands and agrees. Operations or Procedures CHEST RADIOGRAPH Indication: chest pain Technique: Single frontal view of the chest was obtained Comparison: None FINDINGS: Lines and Tubes: None Lungs: No focal consolidation. Mild interstitial prominence. Pleura: No effusion. No pneumothorax. Cardiomediastinal contours: Unremarkable Bones: No acute osseous abnormality. IMPRESSION: Mild Pulmonary vascular congestion. CT CT ANGIO CHEST CONTRAST INDICATION: new onset afib, cp, sob EXAM DATE: 11/05/2024 01:09 PM COMPARISON: None RADIATION DOSE: CTDIvol: 26 mGy, DLP: 1002 mGy*cm PROCEDURE: Helical CT angiographic images were obtained of the chest with intravenous contrast. Sagittal and coronal reconstructions as well as MIPS are provided. Maximum intensity projections performed (MIPs) were performed for CTA. ADDITIONAL IMAGES / REFORMATS: None All CT scans at this medical facility are performed using dose modulation techniques as appropriate to a performed exam including the following: Automated exposure control was utilized; adjustment of the MA and/or KV according to patient size; and use of iterative reconstruction technique. FINDINGS: Bones: Scattered degenerative changes are noted in the visualized osseous structures. Visualized Abdomen: Cirrhotic liver. Chest Wall: Normal. Soft tissues: Normal. Mediastinum: Normal. Heart: Normal. Vessels: No filling defects in the visualized pulmonary arteries including the segmental and subsegmental pulmonary arteries. Lymph Nodes: Normal. Pleura: Normal. Airways: Normal. Lung: Normal. Other: None IMPRESSION: No pulmonary embolism in the visualized pulmonary arteries including the segmental and subsegmental pulmonary arteries. Condition at Discharge: Stable Final Diagnosis/Problems List Paroxysmal Atrial Fibrillation with RVR, resolved Pulmonary embolism, ruled out Chest pain, likely musculoskeletal due muscle strain Type 2 Diabetes Mellitus, HbA1c: 7.4 Morbid obesity, 40.7 kg/m2 Tobacco Use Discharge Disposition: Home Discharge Instruct/Medications Diet: Consistent carbohydrate Activity: No Restrictions, As Tolerated Follow Up/Referral: Follow up wtih PCP in 1-2 weeks Medications: Amiodarone Eliquis Metoprolol Home medications Scheduled Amiodarone Hcl (Amiodarone Hcl), 1 TAB PO BID Apixaban Base (Eliquis), 5 MG PO BID Metoprolol Tartrate (Metoprolol Tartrate), 0.5 TAB PO BID Semaglutide (Ozempic), 2.5 MG SC QWEEKLY, (Reported) Discontinued Medications Sulfamethoxazole W/Trimethopri (Bactrim Ds Tablet), 1 TAB PO BID, (Reported) Discharge Statement: "Patient was advised to return to the ER or call 911 if any headaches, dizziness, shortness of breath, chest pain, abdominal pain, bleeding, fevers, or worsening of medical condition. Patient was counseled about treatment plan, medications, possible side effects, patientverbalized understanding. All questions were answered to the best of my ability. This discharge took greater then 30 minutes in planning, reviewing documentation, counseling the patient, and discussing with other team members." ASSESSMENT ASSESSMENT Assessment Paroxysmal Afib with RVR KEVIN FULLER RESIDENT Nov 07, 2024 12:40
[2024-11-07 12:41] VITALS: BP 125/75; PULSE 57; RESP 18; TEMP 98; O2SAT 95
--- NOTE | 2024-11-07 14:58 | DVHPN2 ---
Consult Progress Note Subjective Other Systems: Patient remains in normal sinus rhythm at time of assessment. Objective vital signs Vital Sign Date Time Temp Pulse Resp B/P (MAP) Pulse Ox O2 Delivery O2 Flow Rate FiO2 11/07/24 12:41 98.0 57 18 95 11/07/24 12:30 122/94 (103) 11/06/24 20:00 Room Air* 0 21 Total Intake and Output 11/06/24 11/06/24 11/07/24 15:00 23:00 07:00 Intake Total 1200 ml 400 ml Balance 1200 ml 400 ml medications Current Medications Medications Dose Ordered Sig/Jay Route Start Time Stop Time Status Last Admin Dose Admin Diagnostic Test (Pha) 1 strip ACHS 11/05/24 22:00 11/07/24 06:23 1 STRIP Insulin Human Regular ACHS SC 11/05/24 22:00 11/07/24 06:22 2 UNITS Dextrose 50 ml UD PRN IV 11/05/24 19:30 Ondansetron HCl 4 mg Q4HP PRN IV 11/05/24 19:30 Acetaminophen 650 mg Q6HP PRN PO 11/05/24 19:30 Amiodarone HCl 200 mg Q12HR PO 11/06/24 22:00 11/07/24 10:27 200 MG Enoxaparin Sodium 130 mg Q12HR SC 11/06/24 22:00 11/07/24 10:27 130 MG Metoprolol Tartrate 12.5 mg BID PO 11/06/24 22:00 11/07/24 10:28 12.5 MG Examination: GENERAL:Normal, LUNGS:Normal, CVS:Normal, NEURO:Normal laboratory and microbiology Laboratory Tests 11/07/24 04:10 Test 11/07/24 04:10 Range/Units Serum Glucose 124 H 74-106 mg/dL Problem List/Assessment/Plan Problem List/Assessment/Plan Atrial fibrillation with rapid ventricular response, new onset, now normal sinus rhythm Rule out structural heart disease Type 2 diabetes mellitus Nicotine and tobacco use Morbid obesity Plan/Recommendation (Dr. Pineda): * Transthoracic echocardiogram to evaluate cardiac function * [id number] VASc score: 1 point, HAS-BLED score: 0 points * Transitioned to oral antiarrhythmic agent, amiodarone. Consider flecainide if EF normal * Initiate low-dose beta-glenda * Therapeutic Lovenox while inpatient, consider NOAC upon DC * Monitor and replete electrolytes as needed * Close Cardiac surveillance The patient was chemically cardioverted with amiodarone and is now in a normal sinus rhythm. Although patient [id number] VASc score is low, NOAC therapy should be considered upon discharge for at least 30 days given high-risk for thromboembolic event post cardioversion. In the setting of an unremarkable transthoracic echocardiogram, there is no further inpatient cardiac workup indicated at this time. The patient will need to follow up with a weathercaster in the outpatient setting within 1-2 weeks post discharge. Thank you for allowing us to care for this patient. Please call with any questions or concerns. This medical document was created using an electronic medical record system with voice recognition software and computerized dictation system. Although this document has been carefully reviewed, there might still be some phonetic and typographical errors. Occasional wrong-word or ``sound-alike substitutions may have occurred due to the inherent limitations of voice recognition software. These areas are purely typographical due to imperfections of the software programs and do not reflect any compromise in the patient's medical care. Please read the chart carefully and recognize, using context, where these substitutions have occurred. Plan discussed with: Patient Date of Service: Nov 07, 2024 Billing Provider: RODNEY FLOWERS Common Visit Codes: [id number] INP/OBS CARE(HIGH) RODNEY FLOWERS Nov 07, 2024 14:58
--- NOTE | 2024-11-07 17:49 | DVHSR ---
APPROVED REPORT EXAM: Two-dimensional and M-mode echocardiogram with Doppler and color Doppler. Blood Pressure: 122/81 mmHg INDICATION afib RISK FACTORS Obesity: Height: 5'10, Weight: 277 DIMENSIONS LVDd4.8 (3.8-5.7cm)LA (2D)4.9 (1.9-4.0cm)Aortic Root3.8 (2.0-3.7cm) LVDs3.3 (2.5-4.0cm)LA (MM) (1.9-4.0cm)Aortic Cusp Exc1.9 (1.5-2.0cm) EF (%) 55.0 (55-70%)Rt. Atrium3.7 (1.9-4.0cm)Asc. Aorta3.9 cm IVSd0.9 (0.7-1.1cm)RV (D)4.6 (1.8-2.4cm) PWd0.9 (0.7-1.1cm) Mitral Valve MitralMitral Stenosis E wave0.91m/sMV Mean GR.mmHg A wave0.87m/sMV Peak GR.93mmHg E/A ratio1.02D MVAcm2 DECEL [id number] 1/2 Timems Aortic Valve Aortic ValveAortic Stenosis V11.62m/Janak Mean GR.9mmHg V21.92m/Janak Peak GR.15mmHg LVOT Diameter3.0 (1.8-2.4cm)Doppler AVA5.96cm2 Pulmonic Valve V21.27m/s Tricuspid Valve TR Velocity2.45m/s [id number] Other Information Quality : LimitedTechnically LimitedRhythm : Conclusion LVEF 55-60%, Mild Diastolic dysfunction Mild Left atrial enlargement No significant valve disease
== END 2024-11-07 14:45 | disposition home or self-care (01) | DRG 201 ==
LOC: ER 11:12 → OVERFLOW 19:16 → WEST WING 19:18
PROVIDERS: ADMIT Student in an Organized Health Care Education/Training Program; ATTEND Student in an Organized Health Care Education/Training Program
DX: I48.0 Paroxysmal atrial fibrillation (principal); E11.9 Type 2 diabetes mellitus without complications; S29.011A Strain of muscle and tendon of front wall of thorax, initial encounter; E66.01 Morbid (severe) obesity due to excess calories; Z68.39 Body mass index [BMI] 39.0-39.9, adult; Z20.822 Contact with and (suspected) exposure to COVID-19; Z96.651 Presence of right artificial knee joint; Z87.442 Personal history of urinary calculi; Z83.79 Family history of other diseases of the digestive system; Z79.899 Other long term (current) drug therapy; Z87.891 Personal history of nicotine dependence; Z71.6 Tobacco abuse counseling; X58.XXXA Exposure to other specified factors, initial encounter; Y93.89 Activity, other specified; Y92.89 Other specified places as the place of occurrence of the external cause; Y99.8 Other external cause status
CPT/HCPCS: 36415; 71045; 71275; 80048; 81001; 82607; 82746; 82962; 83036; 83735; 83880; 84443; 84484; 85025; 85379; 87426; 87804; 93005; 93306; 96360; 99291; G0378; J1815